=== PATIENT | female | born 1950 ===

== ENCOUNTER 2025-02-13 09:21 | Outpatient (AMB) | payer MEDICARE, OTHER, SELFPAY ==
--- OUTSIDE RECORDS SUMMARY | 2025-02-10 23:59 | XMS_ITS | Continuity of Care Document ---
Author Organization [facility] Address [address] [place] [address]- Care Team Providers Care Switch Maker Name Role Phone Ricarda LOPEZ, Kandi Montalvo Primary Care Physician Encounter [facility] Date(s): 01/11/25 - 02/10/25 [facility] [address] [place], [place] [address] Attending Physician: Sylvie Ghosh Admitting Physician: Sylvie Ghosh Referring Physician: Sylvie Ghosh Encounter Type: Triage Allergies, Adverse Reactions, Alerts Substance Criticality Severity Reaction Reaction Severity Status sulfa drugs RASH Active Other Environmental Allergy Active Immunizations Given and Recorded Vaccine Date Status Refusal Reason SARS-CoV-2 (COVID-19) mRNA BNT-162b2 vac 1 08/17/20 Recorded SARS-CoV-2 (COVID-19) mRNA BNT-162b2 vac 2 07/27/20 Recorded 1Result Comment: Done at [facility] 2Result Comment: Done at [facility] Medications Allergy shots Allergy shots, Refills 0, Maintenance, 09/04/24 8:39:00 AM EDT, Supply Start Date: 09/04/24 Status: Ordered Repeat number: 1 Estrace Vaginal Cream 0.1 mg/g See Instructions, insert one half gram intravaginally 2x per week at night, # 42.5 Gm, 4 Refills, Maintenance, 01/11/25 11:16:00 AM EDT, [id number], Partial fill upon patient request if the prescription is for a schedule II opioid drug., 153, cm, 01/11/25 8:58:00 EDT, Height, 58.4, kg, 09/12/24 8:53:00 EDT, Dry Weight Start Date: 01/11/25 Status: Ordered Quantity: 42.5 Unit: g Repeat number: 5 losartan 25 mg oral tablet 25 mg, 1, tablet, By Mouth, Daily, Refills 0, Maintenance, 01/04/23 2:14:00 PM EDT, Partial fill upon patient request if the prescription is for a schedule II opioid drug. Start Date: 01/04/23 Status: Ordered Repeat number: 1 Multivitamin By Mouth, Daily, 0 Refills, Maintenance, 09/20/13 9:39:11 AM EDT Start Date: 09/20/13 Status: Ordered Repeat number: 1 Problem List Condition Confirmation Course Effective Dates Status H ealth Status Informant Hypertension Confirmed Active Well woman exam with routine gynecological exam Confirmed Active Seasonal allergies Confirmed Active Vaginal dryness, menopausal Confirmed Active Social History Social History Type Response Smoking Status Never smoker entered on: 09/20/13 Sex Sex Representation Female (finding) MG Breast Views * Event Display: MM Mammogram, Non- BH Authored Date: Patient Care team information Care Team Personnel Name: Kandi Chowdary MD Position: [facility] Physician - Primary Care Member Role: PCP Address: [address] [place] [address]- Telecom: Name: Bridgette Azul MD Position: [facility] PRODUCT SUPPORT ANALYST Member Role: [employer] PRODUCT SUPPORT ANALYST Physician Address: [facility] [place] [address]- Telecom: Care Team Related Persons Name: ALAINA LINDSEY Insurance Providers Guarantor name: SHASHANK LINDSEY Exhbit Plan Information #: 1 Payer: MEDICARE B Payer Identifier: NA Member Number: [id number] Group Number: NA Subscriber Identifier: [id number] Relationship to Subscriber: self Coverage Type: NA Coverage Verification Date: NA Telecom: NA Address: Health Plan Information #: 2 Payer[facility] Payer Identifier: [facility] Member Number: [id number] Group Number: [id number] Subscriber Identifier: [id number] Relationship to Subscriber: spouse Coverage Type: Commercial Indemnity Coverage Verification Date: NA Telecom: NA Address:
--- OUTSIDE RECORDS SUMMARY | 2025-02-13 10:25 | XMS_ITS | Clinical Summary ---
Author Organization [facility] Address [address] [place] [phone] Phone Care Team Providers Care Retail Sales Representative Name Role Phone Kandi Chowdary MD Primary Care Provider [phone] Allergies Active Allergy Reactions Criticality Noted Date Comments Cholestatin 11/10/2021 Sulfa Antibiotics 01/23/2021 Medications Multiple Vitamin (multivitamin) tablet Take 1 tablet by mouth 1 (one) time each day Active cinnamon 500 MG capsule Take 500 mg by mouth 1 (one) time each day Active calcium carbonate (OS-EMRE) 1250 (500 Ca) MG tablet Take 1 tablet by mouth 1 (one) time each day Active estradiol (ESTRACE) 0.1 MG/GM vaginal cream INSERT 0.5 GRAM INTRAVAGINALLY 2 TIMES EVERY WEEK AT NIGHT 04/05/20 23 Active losartan (COZAAR) 25 MG tabletIndication s:Essential hypertension Take 1 tablet (25 mg total) by mouth 1 (one) time each day 90 tablet 3 10/04/19 25 Active Active Problems Problem Noted Date Diagnosed Date Hypertensive disorder 11/04/2021 Essential hypertension 01/23/2021 Immunizations Immunization Administration Dates Next Due Pfizer SARS-COV-2 08/17/2020,07/27/2020 Family History Medical History Relation Comments Motor neuron disease Father Cancer Maternal Grandmother Hypertension Mother Macular degeneration Mother Relation Status Comments Father (Age 51) Maternal Grandmother Cervical ca ncer Mother (Age 95) Social History Tobacco Use Types Packs/Day Years Used Date Smoking Tobacco: Never Smokeless Tobacco: Never Tobacco Cessation:Counseling Given: Not Answered Alcohol Use Standard Drinks/Week Comments Yes 0 (1 standard drink = 0.6 oz pur e alcohol) Ocassional drinker Comments Unknown Sex and Gender Information Value Date Recorded Sex Assigned at Not on file Legal Sex Female 10:27 AM EDT Gender Identity Not on file Sexual Orientation Not on file Last Filed Vital Signs Vital Sign Reading Time Taken Comments Blood Pressure 128/68 05/15/2024 8:21 AM EST Pulse 68 05/15/2024 8:21 AM EST Temperature - - Respiratory Rate - - Oxygen Saturation 98% 05/15/2024 8:21 AM EST Inhaled Oxygen Concentration - - Weight 60.8 kg (134 lb) 05/15/2024 8:21 AM EST Height 154.9 cm (5' 1 ) 05/05/2023 1:28 PM EST Body Mass Index 25.32 05/05/2023 1:28 PM EST Plan of Treatment Upcoming Encounters Date Type Department Care Team (Late st Contact Info) Description 05/14/2025 8:30 AM EST Office Visit [facility] [address] [phone] Kacie Cheema ARNP [address] [phone] Health Maintenance Due Date Last Done Comments Breast Cancer Screening 1950 Pneumococcal Vaccine: 50+ Ye ars (1 of 2 - PCV) 1969 Colorectal Cancer Screening: Annual FOBT 11/12/1999 Colorectal Cancer Screening: Colonoscopy 11/12/1999 Colorectal Cancer Screening: Sigmoidoscopy 11/12/1999 Influenza Vaccine (#1) 2025 Hepatitis B Vaccine Aged Out No longe r eligible based on patient's age to complete this topic Insurance [facility] Medicare Medicare [facility] Care Teams Retail Sales Representative Relationship Specialty Start Date End Date Kandi Chowdary MD [address] [place] [address] PCP - General Family Medicine 10/29/20
== END 2025-02-13 09:57 | disposition home or self-care (01) ==
LOC: HO.HMGAL 09:21
PROVIDERS: PCP Family Medicine; Visit Provider Registered Nurse Emergency
DX: J30.89 Other allergic rhinitis (principal)
CPT/HCPCS: 95117; 95165

== ENCOUNTER 2025-03-07 14:09 | Outpatient (AMB) | payer MEDICARE, OTHER, SELFPAY ==
--- OUTSIDE RECORDS SUMMARY | 2025-03-07 17:22 | XMS_ITS | Clinical Summary ---
Author Organization [facility] Address [address] [place] [phone] Phone Care Team Providers Care Lube Worker Name Role Phone Kandi Chowdary MD Primary Care Provider [phone] Allergies Active Allergy Reactions Criticality Noted Date [...] Care Team (Late st Contact Info) Description 03/28/2025 Orders Only [facility] [address] [place] [phone] Kacie Cheema ARNP [address] [place] [phone] Essential hypertension 05/14/2025 8:30 AM EST Office Visit [facility] [address] [phone] Kacie Cheema ARNP [address] [phone] Health Maintenance Due Date Last Done Comments Breast Cancer Screening 1950 Pneumococcal Vaccine: 50+ Ye ars (1 of 2 - PCV) 1969 Colorectal Cancer Screening: Annual FOBT 11/12/1999 Colorectal Cancer Screening: Colonoscopy 11/12/1999 Colorectal Cancer Screening: Sigmoidoscopy 11/12/1999 Influenza Vaccine (#1) 2025 Hepatitis B Vaccine Aged Out No longe r eligible based on patient's age to complete this topic Insurance [facility] Medicare Medicare [facility] [place]UREANO [id number] Care Teams Lube Worker Relationship Specialty Start Date End Date Kandi Chowdary MD [address] [place] [phone] PCP - General Family Medicine 10/29/20
== END 2025-03-07 14:16 | disposition home or self-care (01) ==
LOC: HO.HMGAL 14:09
PROVIDERS: PCP Family Medicine; Visit Provider Registered Nurse Emergency
DX: J30.89 Other allergic rhinitis (principal)
CPT/HCPCS: 95117; 95165

== ENCOUNTER 2025-03-19 16:15 | Outpatient (AMB) | payer MEDICARE, OTHER, SELFPAY | END 2025-03-19 16:16 | disposition home or self-care (01) | LOC: HO.HMGAL 16:15 | PROVIDERS: PCP Family Medicine; Visit Provider Registered Nurse Emergency | DX: J30.89 Other allergic rhinitis (principal) | CPT/HCPCS: 95117; 95165 ==

== ENCOUNTER 2025-04-02 11:07 | Outpatient (AMB) | payer MEDICARE, OTHER, SELFPAY ==
--- OUTSIDE RECORDS SUMMARY | 2025-04-02 13:35 | XMS_ITS | Encounter Summary ---
Author Organization [facility] Address [address] [phone] Phone Care Team Providers Care Greenskeeper Name Role Phone Kandi Chowdary MD Primary Care Provider [phone] Encounter Details Date Type Department Care Team (Late Contact Info) Description 03/28/2025 Orders Only [facility] [address] [place] [phone] Kacie Cheema ARNP [address] [phone] Essential hypertension Social History Tobacco Use Types Packs/Day Years Used Date Smoking Tobacco: Never Smokeless Tobacco: Never Alcohol Use Standard Drinks/Week Comments Yes 0 (1 standard drink = 0.6 oz pur e alcohol) Ocassional drinker Comments Unknown Sex and Gender Information Value Date Recorded Sex Assigned at Not on file Legal Sex Female 10:27 AM EDT Gender Identity Not on file Sexual Orientation Not on file documented as of this encounter Plan of Treatment Upcoming Encounters Date Type Department Care Team (Late st Contact Info) Description 05/14/2025 8:30 AM EST Office Visit [facility] [address] [phone] Kacie Cheema ARNP [address] [phone] documented as of this encounter Visit Diagnoses Diagnosis Essential hypertension documented in this encounter Care Teams Greenskeeper Relationship Specialty Start Date End Date Kandi Chowdary MD [address] [place] [address] PCP - General Family Medicine 10/29/20 documented as of this encounter
--- OUTSIDE RECORDS SUMMARY | 2025-04-02 13:35 | XMS_ITS | Clinical Summary ---
Author Organization [facility] Address [address] [phone] Phone Care Team Providers Care Mud Boss Name Role Phone Kandi Chowdary MD Primary Care Provider [phone] Allergies Active Allergy Reactions Criticality Noted Date [...] Date Hypertensive disorder 11/04/2021 Essential hypertension 01/23/2021 Encounters Date Type Department Care Team Description 03/28/2025 Orders Only [facility] [address] [phone] Kacie Cheema ARNP Essential hypertension from Last 3 Months Immunizations Immunization Administration Dates Next Due Pfizer [...] Office Visit [facility] [address] [phone] Kacie Cheema ARNP [address] [phone] Health Maintenance Due Date Last Done Comments Breast Cancer Screening 1950 Pneumococcal Vaccine: 50+ Ye ars (1 of 2 - PCV) 1969 Colorectal Cancer Screening: Annual FOBT 11/12/1999 Colorectal Cancer Screening: Colonoscopy 11/12/1999 Colorectal Cancer Screening: Sigmoidoscopy 11/12/1999 Influenza Vaccine (#1) 2025 Hepatitis B Vaccine Aged Out No longe r eligible based on patient's age to complete this topic Insurance [facility] Medicare Medicare [facility] Care Teams Mud Boss Relationship Specialty Start Date End Date Kandi Chowdary MD [address] [place] [address] PCP - General Family Medicine 10/29/20
== END 2025-04-02 11:10 | disposition home or self-care (01) ==
LOC: HO.HMGAL 11:07
PROVIDERS: PCP Family Medicine; Visit Provider Registered Nurse Emergency
DX: J30.89 Other allergic rhinitis (principal)
CPT/HCPCS: 95117; 95165

== ENCOUNTER 2025-04-16 15:58 | Outpatient (AMB) | payer MEDICARE, OTHER, SELFPAY | END 2025-04-16 15:58 | disposition home or self-care (01) | LOC: HO.HMGAL 15:58 | PROVIDERS: PCP Family Medicine; Visit Provider Registered Nurse Emergency | DX: J30.89 Other allergic rhinitis (principal) | CPT/HCPCS: 95117; 95165 ==

== ENCOUNTER 2025-04-30 09:22 | Outpatient (AMB) | payer MEDICARE, OTHER, SELFPAY | END 2025-04-30 09:23 | disposition home or self-care (01) | LOC: HO.HMGAL 09:22 | PROVIDERS: PCP Family Medicine; Visit Provider Registered Nurse Emergency | DX: J30.89 Other allergic rhinitis (principal) | CPT/HCPCS: 95117; 95165 ==

== ENCOUNTER 2025-05-14 14:24 | Outpatient (AMB) | payer MEDICARE, OTHER, SELFPAY | END 2025-05-14 14:24 | disposition home or self-care (01) | LOC: HO.HMGAL 14:24 | PROVIDERS: PCP Family Medicine; Visit Provider Registered Nurse Emergency | DX: J30.89 Other allergic rhinitis (principal) | CPT/HCPCS: 95117; 95165 ==

== ENCOUNTER 2025-05-30 09:58 | Outpatient (AMB) | payer MEDICARE, OTHER, SELFPAY | END 2025-05-30 09:58 | disposition home or self-care (01) | LOC: HO.HMGAL 09:58 | PROVIDERS: PCP Family Medicine; Visit Provider Registered Nurse Emergency | DX: J30.89 Other allergic rhinitis (principal) | CPT/HCPCS: 95117; 95165 ==

== ENCOUNTER 2025-06-11 08:46 | Outpatient (AMB) | payer MEDICARE, OTHER, SELFPAY | END 2025-06-11 08:48 | disposition home or self-care (01) | LOC: HO.HMGAL 08:46 | PROVIDERS: PCP Family Medicine; Visit Provider Registered Nurse Emergency | DX: J30.89 Other allergic rhinitis (principal) | CPT/HCPCS: 95117; 95165 ==